=== PATIENT | male | born 1950 | race Caucasian/White ===

== ENCOUNTER → 2016-07-19 | Outpatient (CLI) | payer MEDICARE, OTHER ==
[~2016-07-19] MED LIST: ALPR-475 PO; ALPR0.5T6 PO; IBUP800T PO; IRON PO; IRON18TA PO; LACT10SO PO; LACT10SO28 PO; LACT1CAP40 PO; LACT1CAP43 PO; LACT20SO13 PO; MAGN400C PO; MELO-184 PO; MESA800T2 PO; MULT-516 PO; MULT-746 PO; NORCO PO; OMEP-110 PO; ONDA4TAB10 PO; OXYC-302 PO; OXYC5CAP4 PO; SERT50TA5 PO; TAMS-11 PO; TEST200V21 IM
== END | disposition home or self-care (01) ==
LOC: STAR 12:11
PROVIDERS: ATTEND Internal Medicine
DX: Z01.810 Encounter for preprocedural cardiovascular examination (principal); K83.0 Cholangitis
CPT/HCPCS: 93005

== ENCOUNTER 2016-07-26 05:21 | Day surgery (SDC) | payer MEDICARE, OTHER ==
[~2016-07-26] VITALS: Ht 180.3 cm; Wt 77.2 kg
[2016-07-26 06:10] VITALS: BP 121/80
[2016-07-26] MEDS ORDERED: LACTATED RINGERS 1,000 ML IV SCH (06:38)
[2016-07-26] MEDS ORDERED: LIDOCAINE 1%, 2ML SQ PRN (07:00)
[2016-07-26] MEDS ORDERED: MIDAZOLAM 1 MG/ML, 2ML ONE (07:21)
[2016-07-26] MEDS ORDERED: PROPOFOL 10 MG/ML, 20ML ONE (07:30)
[2016-07-26] MEDS ORDERED: ROCURONIUM 10 MG/ML ONE (07:30)
[2016-07-26] MEDS ORDERED: SUCCINYLCHOLINE 20 MG/ML, 10ML ONE (07:30)
[2016-07-26] MEDS ORDERED: CIPROFLOXACIN/PMX 400MG/200ML 200 ML ONE (07:42)
[2016-07-26] MEDS ORDERED: OMNIPAQUE 350 MG/ML, 50 ML BOTTLE ONE (08:51)
== END 2016-07-26 10:50 ==
LOC: OUT 05:21
PROVIDERS: ATTEND Internal Medicine
DX: K29.70 Gastritis, unspecified, without bleeding (principal); K83.0 Cholangitis; K51.90 Ulcerative colitis, unspecified, without complications; I85.00 Esophageal varices without bleeding; K31.89 Other diseases of stomach and duodenum; I10 Essential (primary) hypertension
CPT/HCPCS: 43261; 43275; 45330; 74328; 88304; 88305; C1894; C2625; J0330; J0744; J2250; J2704; J7120; Q9967

== ENCOUNTER → 2016-11-13 | Outpatient (CLI) | payer MEDICARE, OTHER ==
[~2016-11-13] MED LIST changes: +IBUP-1223 PO; -IBUP800T PO; -MELO-184 PO; +MELO15TA24 PO; +OXYC5CAP2 PO; -OXYC5CAP4 PO
== END | disposition home or self-care (01) ==
LOC: STAR 10:37
PROVIDERS: ATTEND Internal Medicine
DX: K83.0 Cholangitis (principal); R93.5 Abnormal findings on diagnostic imaging of other abdominal regions, including retroperitoneum; K51.90 Ulcerative colitis, unspecified, without complications
CPT/HCPCS: 93005

== ENCOUNTER 2016-11-22 08:59 | Day surgery (SDC) | payer MEDICARE, OTHER ==
[~2016-11-22] VITALS: Ht 177.8 cm; Wt 77.0 kg
[2016-11-22 09:34] VITALS: BP 116/79
[2016-11-22] MEDS: LACTATED RINGERS 1,000 ML IV SCH (09:51)
== END 2016-11-22 10:11 | disposition home or self-care (01) ==
LOC: OUT 08:59
PROVIDERS: ATTEND Internal Medicine
DX: K83.0 Cholangitis (principal); Z53.9 Procedure and treatment not carried out, unspecified reason
CPT/HCPCS: J7120

== ENCOUNTER 2016-11-28 09:55 | Day surgery (SDC) | payer MEDICARE, OTHER ==
[~2016-11-28] VITALS: Ht 177.8 cm; Wt 76.0 kg
[2016-11-28] MEDS ORDERED: LACTATED RINGERS 1,000 ML IV SCH ×2 (10:30→10:55)
[2016-11-28 10:44] VITALS: BP 129/70
[2016-11-28] MEDS ORDERED: LIDOCAINE 1%, 2ML ONE (10:47)
[2016-11-28] MEDS ORDERED: LIDOCAINE 1%, 2ML SQ PRN (11:00)
[2016-11-28] MEDS ORDERED: FENTANYL PF 100 MCG/2ML ONE (12:30)
[2016-11-28] MEDS ORDERED: MIDAZOLAM 1 MG/ML, 2ML ONE (12:30)
[2016-11-28] MEDS ORDERED: DEXAMETHASONE 4 MG/ML, 1ML ONE (13:27)
[2016-11-28] MEDS ORDERED: PROPOFOL 10 MG/ML, 20ML ONE (13:27)
[2016-11-28] MEDS ORDERED: SUCCINYLCHOLINE 20 MG/ML, 10ML ONE (13:27)
[2016-11-28] MEDS ORDERED: CEFAZOLIN 1,000 MG ONE (13:27)
[2016-11-28] MEDS ORDERED: NEOSTIGMINE 1 MG/ML, 10ML ONE (13:27)
[2016-11-28] MEDS ORDERED: ONDANSETRON 2MG/ML, 2ML ONE (13:27)
[2016-11-28] MEDS ORDERED: ROCURONIUM 10 MG/ML ONE (13:27)
[2016-11-28] MEDS ORDERED: GLYCOPYRROLATE 0.2MG/1ML, 5ML ONE (13:27)
[2016-11-28] MEDS ORDERED: PROMETHAZINE 25 MG/ML, 1ML IV PRN (13:30)
[2016-11-28] MEDS ORDERED: METOPROLOL 1 MG/ML, 5ML IV PRN (13:30)
[2016-11-28] MEDS ORDERED: hydrALAzine 20 MG/ML, 1ML IV PRN (13:30)
[2016-11-28] MEDS ORDERED: MIDAZOLAM 1 MG/ML, 2ML IV PRN (13:30)
[2016-11-28] MEDS ORDERED: HYDROcodone/APAP 7.5-325MG/15ML UDC PO PRN (13:30)
[2016-11-28] MEDS ORDERED: LABETALOL 5MG/ML, 20ML IV PRN (13:30)
[2016-11-28] MEDS ORDERED: OXYcodone 5 MG/5 ML ORAL.SOL UDC PO PRN (13:30)
[2016-11-28] MEDS ORDERED: ALBUTEROL SULFATE 2.5 MG/3 ML NPPB PRN (13:30)
[2016-11-28] MEDS ORDERED: ACETAMINOPHEN 325 MG TABLET PO PRN (13:30)
[2016-11-28] MEDS ORDERED: HYDROmorphone 1 MG/ML, 1ML IV PRN (13:30)
[2016-11-28] MEDS ORDERED: FENTANYL PF 100 MCG/2ML IV PRN (13:30)
[2016-11-28] MEDS ORDERED: MEPERIDINE/PF 25MG/0.5ML IVPush PRN (13:30)
[2016-11-28] MEDS ORDERED: DIAZEPAM 5 MG/ML, 2ML IVPush PRN (13:30)
[2016-11-28] MEDS ORDERED: EPHEDRINE 50 MG/ML, 1ML IVPush PRN (13:30)
[2016-11-28] MEDS ORDERED: ONDANSETRON 2MG/ML, 2ML IVPush PRN (13:30)
[2016-11-28] MEDS ORDERED: KETOROLAC 30 MG/1 ML IV PRN (13:30)
== END 2016-11-28 15:10 ==
LOC: OUT 09:55
PROVIDERS: ATTEND Internal Medicine
DX: K83.0 Cholangitis (principal)
CPT/HCPCS: 43261; 43276; 74328; 88305; C1769; C2625; J0330; J0690; J1100; J2250; J2405; J2704; J2710; J3010; J3490; J7120

== ENCOUNTER → 2017-03-26 | Outpatient (CLI) | payer MEDICARE, OTHER | END | disposition home or self-care (01) | LOC: STAR 12:57 | PROVIDERS: ATTEND Internal Medicine | DX: Z01.818 Encounter for other preprocedural examination (principal); K83.0 Cholangitis | CPT/HCPCS: 93005 ==

== ENCOUNTER 2017-04-10 08:03 | Day surgery (SDC) | payer MEDICARE, OTHER ==
[~2017-04-10] VITALS: Ht 177.8 cm; Wt 76.0 kg
[2017-04-10] MEDS ORDERED: LACTATED RINGERS 1,000 ML IV SCH (08:18)
[2017-04-10 08:32] VITALS: BP 108/73
[2017-04-10] MEDS ORDERED: MIDAZOLAM 1 MG/ML, 2ML ONE (10:40)
[2017-04-10] MEDS ORDERED: LIDOCAINE-MPF 2% ,5ML ONE (10:49)
[2017-04-10] MEDS ORDERED: PROPOFOL 10 MG/ML, 20ML ONE (10:49)
[2017-04-10] MEDS ORDERED: ROCURONIUM 10 MG/ML,10ML ONE (10:49)
[2017-04-10] MEDS ORDERED: FENTANYL PF 100 MCG/2ML ONE (11:02)
[2017-04-10] MEDS ORDERED: DEXAMETHASONE 4 MG/ML, 1ML ONE ×2 (11:03)
[2017-04-10] MEDS ORDERED: ONDANSETRON 2MG/ML, 2ML ONE (11:03)
[2017-04-10] MEDS ORDERED: morphine SULFATE 10 MG/ML, 1ML IV PRN (11:30)
[2017-04-10] MEDS ORDERED: HYDROcodone/APAP 7.5-325MG/15ML UDC PO PRN (11:30)
[2017-04-10] MEDS ORDERED: OXYcodone 5 MG/5 ML ORAL.SOL UDC PO PRN (11:30)
[2017-04-10] MEDS ORDERED: MEPERIDINE/PF 25MG/0.5ML IVPush PRN (11:30)
[2017-04-10] MEDS ORDERED: ONDANSETRON 2MG/ML, 2ML IVPush PRN (11:30)
[2017-04-10] MEDS ORDERED: FENTANYL PF 100 MCG/2ML IV PRN (11:30)
[2017-04-10] MEDS ORDERED: ACETAMINOPHEN 325 MG TABLET PO PRN (11:30)
[2017-04-10] MEDS ORDERED: NEOSTIGMINE 1 MG/ML, 10ML ONE (16:14)
[2017-04-10] MEDS ORDERED: GLYCOPYRROLATE 0.2MG/1ML, 5ML ONE (16:14)
== END 2017-04-10 13:05 ==
LOC: OUT 08:03
PROVIDERS: ATTEND Internal Medicine
DX: K83.0 Cholangitis (principal); Z88.5 Allergy status to narcotic agent; Z88.0 Allergy status to penicillin
CPT/HCPCS: 43261; 43276; 74328; 88112; C1894; C2625; J1100; J2405; J2704; J2710; J3010; J3490; J7120

== ENCOUNTER 2017-08-01 05:39 | Day surgery (SDC) | payer MEDICARE, OTHER ==
[~2017-08-01] VITALS: Ht 177.8 cm; Wt 73.8 kg
[2017-08-01] MEDS ORDERED: LACTATED RINGERS 1,000 ML IV SCH (06:47)
[2017-08-01 07:11] VITALS: BP 117/66
[2017-08-01] MEDS ORDERED: MIDAZOLAM 1 MG/ML, 2ML ONE (07:15)
[2017-08-01] MEDS ORDERED: ONDANSETRON 2MG/ML, 2ML ONE (07:34)
[2017-08-01] MEDS ORDERED: DEXAMETHASONE 4 MG/ML, 1ML ONE (07:34)
[2017-08-01] MEDS ORDERED: CEFAZOLIN 1,000 MG ONE (07:34)
[2017-08-01] MEDS ORDERED: PROPOFOL 10 MG/ML, 20ML ONE (07:34)
[2017-08-01] MEDS ORDERED: SUCCINYLCHOLINE 20 MG/ML, 10ML ONE (07:34)
[2017-08-01] MEDS ORDERED: OXYcodone 5 MG/5 ML ORAL.SOL UDC PO PRN (08:00)
[2017-08-01] MEDS ORDERED: ACETAMINOPHEN 325 MG TABLET PO PRN (08:00)
[2017-08-01] MEDS ORDERED: FENTANYL PF 100 MCG/2ML IV PRN (08:00)
[2017-08-01] MEDS ORDERED: OMNIPAQUE 350 MG/ML, 50 ML BOTTLE ONE (08:47)
== END 2017-08-01 10:45 | disposition home or self-care (01) ==
LOC: OUT 05:39
PROVIDERS: ATTEND Internal Medicine
DX: K83.0 Cholangitis (principal); K83.1 Obstruction of bile duct; K76.6 Portal hypertension; I85.00 Esophageal varices without bleeding; K31.9 Disease of stomach and duodenum, unspecified; Z88.5 Allergy status to narcotic agent; Z88.0 Allergy status to penicillin; Z85.038 Personal history of other malignant neoplasm of large intestine; Z79.899 Other long term (current) drug therapy
CPT/HCPCS: 43261; 43276; 74328; 88305; 93005; C1769; C1894; C2625; J0330; J0690; J1100; J2250; J2405; J2704; J7120; Q9967

== ENCOUNTER → 2017-11-20 | Outpatient (CLI) | payer MEDICARE, OTHER | END | disposition home or self-care (01) | LOC: STAR 13:20 | PROVIDERS: ATTEND Internal Medicine | DX: Z01.818 Encounter for other preprocedural examination (principal); K83.01 Primary sclerosing cholangitis | CPT/HCPCS: 93005 ==

== ENCOUNTER 2017-11-28 05:37 | Day surgery (SDC) | payer MEDICARE, OTHER ==
[~2017-11-28] VITALS: Ht 177.8 cm; Wt 73.0 kg
[2017-11-28] MEDS ORDERED: LACTATED RINGERS 1,000 ML IV SCH (06:08)
[2017-11-28 06:09] VITALS: BP 109/72
[2017-11-28] MEDS ORDERED: LIDOCAINE-MPF 1%, 2ML INFIL ONE (06:30)
[2017-11-28] MEDS ORDERED: MIDAZOLAM 1 MG/ML, 2ML ONE (07:03)
[2017-11-28] MEDS ORDERED: FENTANYL PF 100 MCG/2ML ONE (07:03)
[2017-11-28] MEDS ORDERED: PROPOFOL 10 MG/ML, 20ML ONE (07:25)
[2017-11-28] MEDS ORDERED: ROCURONIUM 10 MG/ML,10ML ONE (07:25)
[2017-11-28] MEDS ORDERED: SUCCINYLCHOLINE 20 MG/ML, 10ML ONE (07:25)
[2017-11-28] MEDS ORDERED: CEFAZOLIN 1,000 MG ONE (07:25)
[2017-11-28] MEDS ORDERED: ONDANSETRON 2MG/ML, 2ML ONE (07:25)
[2017-11-28] MEDS ORDERED: DEXAMETHASONE 4 MG/ML, 1ML ONE (07:25)
[2017-11-28] MEDS ORDERED: ALBUTEROL SULFATE 2.5 MG/3 ML NPPB PRN (08:00)
[2017-11-28] MEDS ORDERED: FENTANYL PF 100 MCG/2ML IV PRN (08:00)
[2017-11-28] MEDS ORDERED: ACETAMINOPHEN 325 MG TABLET PO PRN (08:00)
[2017-11-28] MEDS ORDERED: PROMETHAZINE 25 MG/ML, 1ML IV PRN (08:00)
[2017-11-28] MEDS ORDERED: OXYcodone 5 MG/5 ML ORAL.SOL UDC PO PRN (08:00)
== END 2017-11-28 11:15 | disposition home or self-care (01) ==
LOC: OUT 05:37
PROVIDERS: ATTEND Internal Medicine
DX: K83.09 Other cholangitis (principal); I85.00 Esophageal varices without bleeding; K76.6 Portal hypertension; K31.89 Other diseases of stomach and duodenum; Z88.5 Allergy status to narcotic agent; Z88.0 Allergy status to penicillin
CPT/HCPCS: 43261; 43276; 74328; 88305; C1894; C2625; J0330; J0690; J1100; J2250; J2405; J2704; J3010; J7120

== ENCOUNTER 2018-01-08 13:39 | Outpatient (CLI) | payer MEDICARE, OTHER | END 2018-01-15 09:53 | disposition home or self-care (01) | LOC: STAR 13:39 | PROVIDERS: ATTEND Surgery | DX: Z02.9 Encounter for administrative examinations, unspecified (principal) ==

== ENCOUNTER 2018-02-26 13:48 | Outpatient (CLI) | payer MEDICARE, OTHER ==
[~2018-02-26 13:48] MED LIST changes: +SERT50TA28 PO; -SERT50TA5 PO
== END 2018-02-26 23:59 | disposition home or self-care (01) ==
LOC: STAR 13:48
PROVIDERS: ATTEND Internal Medicine
DX: Z02.9 Encounter for administrative examinations, unspecified (principal)

== ENCOUNTER 2018-03-06 06:13 | Day surgery (SDC) | payer MEDICARE, OTHER ==
[~2018-03-06] VITALS: Ht 177.8 cm; Wt 73.0 kg
[2018-03-06 06:43] VITALS: BP 118/70
[2018-03-06] MEDS ORDERED: LACTATED RINGERS 1,000 ML IV SCH (06:47)
[2018-03-06] MEDS ORDERED: FENTANYL PF 250 MCG/5ML ONE (07:57)
[2018-03-06] MEDS ORDERED: MIDAZOLAM 1 MG/ML, 2ML ONE (07:57)
[2018-03-06] MEDS ORDERED: GLYCOPYRROLATE 0.2MG/1ML, 5ML ONE (08:00)
[2018-03-06] MEDS ORDERED: DEXAMETHASONE 4 MG/ML, 1ML ONE (08:00)
[2018-03-06] MEDS ORDERED: PROPOFOL 10 MG/ML, 20ML ONE (08:00)
[2018-03-06] MEDS ORDERED: CEFAZOLIN 1,000 MG ONE (08:00)
[2018-03-06] MEDS ORDERED: ROCURONIUM 10 MG/ML,10ML ONE ×2 (08:00)
[2018-03-06] MEDS ORDERED: NEOSTIGMINE 1 MG/ML, 10ML ONE (08:00)
[2018-03-06] MEDS ORDERED: PHENYLEPHRINE 10 MG/ML ONE (08:00)
[2018-03-06] MEDS ORDERED: FENTANYL PF 100 MCG/2ML IV PRN (08:30)
[2018-03-06] MEDS ORDERED: HALOPERIDOL 5 MG/ML IV PRN (08:30)
[2018-03-06] MEDS ORDERED: PROMETHAZINE 25 MG/ML, 1ML IV PRN (08:30)
[2018-03-06] MEDS ORDERED: MEPERIDINE/PF 25MG/0.5ML IVPush PRN (08:30)
[2018-03-06] MEDS ORDERED: LORazepam 2 MG/ML, 1ML IVPush PRN (08:30)
[2018-03-06] MEDS ORDERED: OXYcodone 5 MG/5 ML ORAL.SOL UDC PO PRN (08:30)
[2018-03-06] MEDS ORDERED: HYDROmorphone 2 MG/ML, 1ML IVPush PRN (08:30)
[2018-03-06] MEDS ORDERED: OMNIPAQUE 350 MG/ML, 50 ML BOTTLE ONE (11:58)
== END 2018-03-06 11:15 | disposition home or self-care (01) ==
LOC: OUT 06:13
PROVIDERS: ATTEND Internal Medicine
DX: K74.3 Primary biliary cirrhosis (principal); K83.01 Primary sclerosing cholangitis; K83.1 Obstruction of bile duct; I85.00 Esophageal varices without bleeding; Z88.5 Allergy status to narcotic agent; Z88.0 Allergy status to penicillin; Z88.8 Allergy status to other drugs, medicaments and biological substances
CPT/HCPCS: 43261; 43276; 74328; 88305; 93005; C1894; C2625; J0690; J1100; J2250; J2370; J2704; J2710; J3490; J7120; Q9967; J3010

== ENCOUNTER 2018-05-27 12:31 | Outpatient (CLI) | payer MEDICARE, OTHER ==
[2018-05-27] MEDS ORDERED: LACT10SO28 PO (12:53)
== END 2018-05-27 23:59 | disposition home or self-care (01) ==
LOC: STAR 12:31
PROVIDERS: ATTEND Internal Medicine
DX: Z02.9 Encounter for administrative examinations, unspecified (principal)

== ENCOUNTER 2018-06-02 10:35 | Inpatient (IN) | payer MEDICARE, OTHER ==
[~2018-06-02] VITALS: Ht 177.8 cm; Wt 68.2 kg
--- NOTE | 2018-06-02 10:46 | NUR ---
PT BIB [facility] FOR LEFT KNEE TENDERNESS AND ERYTHEMA X 1 WEEK. PT WAS SEEN AND PRESCRIBED ABX, DURING FOLLOW UP ON 05/29/2018, ABX CHANGED TO CLINDA. PT STATES SINCE THEN, KNEE HAS BEEN GETTING WORSE, WITH MORE ERYTHEMA AND TENDERNESS. CONNECTED TO MONITORS. VSS. EDMD ASSESSMENT COMPLETE. PA TO BEDSIDE FOR ASSESSMENT. AWAITING ORDERS. [facility].
[2018-06-02] MEDS ORDERED: VANCOMYCIN PER PHARMACY MC ONE (11:00)
[2018-06-02] MEDS ORDERED: CEFTRIAXONE PMX 1GM/50ML 50 ML IVPB ONE (11:00)
[2018-06-02] MEDS ORDERED: CEFTRIAXONE PMX 1GM/50ML 50 ML ONE (11:09)
--- NOTE | 2018-06-02 11:14 | NUR ---
ORDERS RECEIVED. IV ESTABLISHED. BLOOD CLULTURE X2 AND ALL LABS DRAWN. ABX STARTED AFTER BC DRAWN. VSS. AWAITING ROOM ASSIGNMENT. CALL [facility] WITHIN REACH.
[2018-06-02 11:23] LABS: ALBUMIN 2.8 g/dL (3.4-5.0); ANION GAP 5 mmol/L (5-15); CALCIUM 8.8 mg/dL (8.5-10.1); CHLORIDE 108 mmol/L (98-107); CREATININE 1.36 mg/dL (0.7-1.3)
[2018-06-02] MEDS: SODIUM CHLORIDE 0.9% 1,000 ML IV SCH (11:23)
[2018-06-02 11:26] LABS: MD NO
[2018-06-02 11:27] LABS: BASOPHILS # (AUTO) 0.04 x10^3/uL (0-0.1); BASOPHILS % (AUTO) 1 % (0-1); EOSINOPHILS # (AUTO) 0.13 x10^3/uL (0-0.4); EOSINOPHILS % (AUTO) 2 % (1-7); LYMPHOCYTES # (AUTO) 1.51 x10^3/uL (1-3.4); LYMPHOCYTES % (AUTO) 26 % (22-44); MEAN PLATELET VOLUME 6.8 fL (7.4-10.4); MONOCYTES # (AUTO) 0.26 x10^3/uL (0.2-0.8); MONOCYTES % (AUTO) 5 % (2-9); NEUTROPHILS # (AUTO) 3.84 x10^3/uL (1.8-6.8); NEUTROPHILS % (AUTO) 66 % (42-75); PLATELET COUNT 206 x10^3/uL (130-400); RED BLOOD COUNT 3.32 x10^6/uL (4.38-5.82); RED CELL DISTRIBUTION WIDTH 14.6 % (9.4-14.8)
[2018-06-02] MEDS ORDERED: VANCOMYCIN PER PHARMACY MC PRN (11:30)
[2018-06-02] MEDS ORDERED: VANCOMYCIN 1,500 MG in SODIUM CHLORIDE 0.9% 250 ML IV ONE (11:30)
[2018-06-02] MEDS ORDERED: ACETAMINOPHEN 325 MG TABLET PO PRN ×2 (11:30→16:00)
[2018-06-02] MEDS ORDERED: KETOROLAC 30 MG/1 ML IV PRN (11:30)
[2018-06-02] MEDS ORDERED: PHARMACOKINETIC CONSULTATION MC ONE (11:30)
[2018-06-02] MEDS ORDERED: ONDANSETRON ODT 4 MG PO PRN (11:30)
[2018-06-02] MEDS ORDERED: ONDANSETRON 2MG/ML, 2ML IVPush PRN (11:30)
--- NOTE | 2018-06-02 12:09 | NUR ---
PT RESTING IN ROOM. VSS. CALL [facility] WITHIN REACH. BLANKET PROVIDED FOR COMFORT PER PT REQUEST. REPORT GIVEN TO [facility]. AWAITING TRANSFER TO OR.
--- NOTE | 2018-06-02 12:55 | NUR ---
PT RESTING IN ROOM. VSS. UPDATES GIVEN TO PT'S SISTER DAVE TONGMOIRA WITH PT'S PERMISSION. ROOM ASSIGNED. WILL CALL REPORT NOW.
[2018-06-02] MEDS ORDERED: KETOROLAC 30 MG/1 ML ONE (14:12)
[2018-06-02 14:23] VITALS: BP 114/80
[2018-06-02 14:46] LABS: INTERNATIONAL NORMALIZED RATIO 1.07 (0.93-1.1); PROTHROMBIN TIME 11.2 Seconds (9.6-11.5)
[2018-06-02] MEDS ORDERED: PHARMACOKINETIC MONITORING MC PRN (15:00)
[2018-06-02] MEDS ORDERED: ENOXAPARIN 40 MG/0.4 ML SQ SCH (15:00)
[2018-06-02] MEDS ORDERED: FENTANYL PF 250 MCG/5ML ONE (15:29)
[2018-06-02] MEDS: VANCOMYCIN 1,500 MG in SODIUM CHLORIDE 0.9% 250 ML IV SCH (15:30)
[2018-06-02] MEDS ORDERED: DEXAMETHASONE 4 MG/ML, 1ML ONE (15:36)
[2018-06-02] MEDS ORDERED: ONDANSETRON 2MG/ML, 2ML ONE (15:36)
[2018-06-02] MEDS ORDERED: PROPOFOL 10 MG/ML, 20ML ONE (15:36)
[2018-06-02] MEDS ORDERED: VANCOMYCIN 1,000 MG ONE (15:51)
[2018-06-02] MEDS ORDERED: TOBRAMYCIN SULFATE 1.2 GM IMP ONE (15:51)
[2018-06-02] MEDS ORDERED: DIAZEPAM 5 MG/ML, 2ML IVPush PRN (16:00)
[2018-06-02] MEDS ORDERED: LABETALOL 5MG/ML, 20ML IV PRN (16:00)
[2018-06-02] MEDS ORDERED: ALBUTEROL SULFATE 2.5 MG/3 ML NPPB PRN (16:00)
[2018-06-02] MEDS ORDERED: hydrALAzine 20 MG/ML, 1ML IV PRN (16:00)
[2018-06-02] MEDS ORDERED: PROMETHAZINE 25 MG/ML, 1ML IV PRN (16:00)
[2018-06-02] MEDS ORDERED: MEPERIDINE/PF 25MG/0.5ML IVPush PRN (16:00)
[2018-06-02] MEDS ORDERED: HYDROmorphone 2 MG/ML, 1ML IVPush PRN (16:00)
[2018-06-02] MEDS ORDERED: FENTANYL PF 100 MCG/2ML ONE (16:32)
[2018-06-02] MEDS ORDERED: OXYcodone 5 MG/5 ML ORAL.SOL UDC ONE ×2 (16:32→16:46)
[2018-06-02] MEDS: FENTANYL PF 100 MCG/2ML IV PRN ×2 (16:37→16:44)
[2018-06-02] MEDS: OXYcodone 5 MG/5 ML ORAL.SOL UDC PO PRN ×2 (16:37→16:48)
[2018-06-02 17:22] VITALS: BP 116/68
[2018-06-02] MEDS: AMPICILLIN/SULBACTAM 3 GM in SODIUM CHLORIDE 0.9% 100 ML IV SCH ×2 (17:47→22:09)
[2018-06-02 19:14] VITALS: BP 96/62
[2018-06-02] MEDS: MESALAMINE 1.2 GM TABLET.DR PO SCH (21:00)
[2018-06-02] MEDS: TAMSULOSIN 0.4 MG CAP.ER.24H PO SCH (21:13)
[2018-06-02] MEDS: OXYcodone IR 5MG TABLET PO PRN (21:13)
[2018-06-03 00:08] VITALS: BP 104/49
[2018-06-03] MEDS: OXYcodone IR 5MG TABLET PO PRN ×4 (04:17→22:43)
[2018-06-03] MEDS: SODIUM CHLORIDE 0.9% 1,000 ML IV SCH ×2 (04:17→22:43)
[2018-06-03 04:22] VITALS: BP 96/44
[2018-06-03 05:15] LABS: BASOPHILS # (AUTO) 0.02 x10^3/uL (0-0.1); BASOPHILS % (AUTO) 0 % (0-1); EOSINOPHILS % (AUTO) 0 % (1-7); LYMPHOCYTES # (AUTO) 0.85 x10^3/uL (1-3.4); LYMPHOCYTES % (AUTO) 20 % (22-44); MD NO; MEAN CORPUSCULAR HEMOGLOBIN 31.2 pg (27.5-34.5); MEAN CORPUSCULAR VOLUME 94.6 fL (81-97); MEAN PLATELET VOLUME 7.3 fL (7.4-10.4); MONOCYTES # (AUTO) 0.11 x10^3/uL (0.2-0.8); MONOCYTES % (AUTO) 3 % (2-9); NEUTROPHILS # (AUTO) 3.28 x10^3/uL (1.8-6.8); NEUTROPHILS % (AUTO) 77 % (42-75); PLATELET COUNT 161 x10^3/uL (130-400); RED BLOOD COUNT 2.96 x10^6/uL (4.38-5.82); RED CELL DISTRIBUTION WIDTH 14.5 % (9.4-14.8)
[2018-06-03 05:24] LABS: CHLORIDE 110 mmol/L (98-107)
[2018-06-03 05:39] LABS: ALANINE AMINOTRANSFERASE 10 U/L (12-78); ALBUMIN 2.4 g/dL (3.4-5.0); ALKALINE PHOSPHATASE 119 U/L (45-117); ANION GAP 4 mmol/L (5-15); BILIRUBIN,TOTAL 0.3 mg/dL (0.2-1.0); CALCIUM 8.2 mg/dL (8.5-10.1); CREATININE 1.22 mg/dL (0.7-1.3); TOTAL PROTEIN 7.1 g/dL (6.4-8.2)
[2018-06-03] MEDS: AMPICILLIN/SULBACTAM 3 GM in SODIUM CHLORIDE 0.9% 100 ML IV SCH ×3 (06:06→22:39)
[2018-06-03] MEDS: ENOXAPARIN 40 MG/0.4 ML SQ SCH (06:06)
[2018-06-03 07:06] VITALS: BP 97/60
[2018-06-03] MEDS: MELOXICAM 15 MG TABLET PO SCH (09:05)
[2018-06-03] MEDS: MESALAMINE 1.2 GM TABLET.DR PO SCH ×2 (09:05→20:30)
[2018-06-03] MEDS: TAMSULOSIN 0.4 MG CAP.ER.24H PO SCH ×2 (09:05→20:30)
[2018-06-03] MEDS: LACTOBACILLUS CHEW TABLET PO SCH ×3 (11:15→20:30)
[2018-06-03 13:18] VITALS: BP 102/44
[2018-06-03] MEDS: VANCOMYCIN 1,500 MG in SODIUM CHLORIDE 0.9% 250 ML IV SCH (15:12)
[2018-06-03 20:06] VITALS: BP 97/57
[2018-06-04 03:57] VITALS: BP 100/49
[2018-06-04] MEDS: LACTOBACILLUS CHEW TABLET PO SCH ×4 (04:04→20:12)
[2018-06-04] MEDS: OXYcodone IR 5MG TABLET PO PRN ×5 (04:04→20:13)
[2018-06-04] MEDS: AMPICILLIN/SULBACTAM 3 GM in SODIUM CHLORIDE 0.9% 100 ML IV SCH ×3 (06:06→22:45)
[2018-06-04] MEDS: ENOXAPARIN 40 MG/0.4 ML SQ SCH (06:06)
[2018-06-04 07:42] VITALS: BP 97/44
[2018-06-04] MEDS: MESALAMINE 1.2 GM TABLET.DR PO SCH ×2 (08:22→20:12)
[2018-06-04] MEDS: MELOXICAM 15 MG TABLET PO SCH (08:22)
[2018-06-04] MEDS: TAMSULOSIN 0.4 MG CAP.ER.24H PO SCH ×2 (08:22→20:12)
[2018-06-04 13:22] VITALS: BP 94/44
[2018-06-04] MEDS: SODIUM CHLORIDE 0.9% 1,000 ML IV SCH (16:24)
[2018-06-04 20:19] VITALS: BP 108/63
[2018-06-05] MEDS: LACTOBACILLUS CHEW TABLET PO SCH ×3 (00:18→16:45)
[2018-06-05] MEDS: OXYcodone IR 5MG TABLET PO PRN ×3 (00:18→16:46)
[2018-06-05 03:38] VITALS: BP 96/63
[2018-06-05] MEDS: AMPICILLIN/SULBACTAM 3 GM in SODIUM CHLORIDE 0.9% 100 ML IV SCH (06:06)
[2018-06-05] MEDS ORDERED: ONDANSETRON 2MG/ML, 2ML IV PRN (08:30)
[2018-06-05] MEDS ORDERED: MIDAZOLAM 1 MG/ML, 2ML IV PRN (08:30)
[2018-06-05] MEDS ORDERED: hydrALAzine 20 MG/ML, 1ML IV PRN (08:30)
[2018-06-05] MEDS ORDERED: DIAZEPAM 5 MG/ML, 2ML IVPush PRN (08:30)
[2018-06-05] MEDS ORDERED: EPHEDRINE 50 MG/ML, 1ML IVPush PRN (08:30)
[2018-06-05] MEDS ORDERED: EPHEDRINE 50 MG/ML, 1ML IM PRN (08:30)
[2018-06-05] MEDS ORDERED: MORPHINE SULFATE 4 MG/ML, 1ML IVPush PRN (08:30)
[2018-06-05] MEDS ORDERED: ONDANSETRON ODT 8 MG PO PRN (08:30)
[2018-06-05] MEDS ORDERED: DIPHENHYDRAMINE 50 MG/ML, 1ML IVPush PRN (08:30)
[2018-06-05] MEDS ORDERED: METOPROLOL 1 MG/ML, 5ML IV PRN (08:30)
[2018-06-05] MEDS ORDERED: FENTANYL PF 100 MCG/2ML IV PRN (08:30)
[2018-06-05] MEDS ORDERED: OMNIPAQUE 350 MG/ML, 50 ML BOTTLE ONE (08:33)
[2018-06-05 09:15] VITALS: BP 102/67
[2018-06-05] MEDS ORDERED: ENOXAPARIN 40 MG/0.4 ML SQ SCH (09:30)
[2018-06-05] MEDS: TAMSULOSIN 0.4 MG CAP.ER.24H PO SCH (10:17)
[2018-06-05] MEDS: MELOXICAM 15 MG TABLET PO SCH (10:17)
[2018-06-05] MEDS: MESALAMINE 1.2 GM TABLET.DR PO SCH (10:17)
[2018-06-05] MEDS ORDERED: ERTAPENEM 1 GM in SODIUM CHLORIDE 0.9% 50 ML IV SCH (11:30)
[2018-06-05 12:32] VITALS: BP 99/67
[2018-06-05] MEDS ORDERED: PROPOFOL 10 MG/ML, 50ML ONE (14:40)
[2018-06-05] MEDS ORDERED: SUCCINYLCHOLINE 20 MG/ML, 10ML ONE (14:40)
[2018-06-05] MEDS ORDERED: ROCURONIUM 10MG/ML,5ML ONE (14:40)
[2018-06-05] MEDS ORDERED: ONDANSETRON 2MG/ML, 2ML ONE (14:40)
[2018-06-05] MEDS ORDERED: PROPOFOL 10 MG/ML, 20ML ONE (14:40)
[2018-06-05] MEDS ORDERED: ERTA1VIA IV (14:45)
[2018-06-05] MEDS ORDERED: ACID1TAB7 PO (14:45)
== END 2018-06-05 17:05 | disposition home or self-care (01) | DRG 500 ==
LOC: ED 11:02 → EDIP 11:10 → 4NOR 14:03 → DCLOUNGE 06-05 16:53
PROVIDERS: ADMIT Internal Medicine; ATTEND Internal Medicine
PROC: 0MDP0ZZ Extraction of Left Knee Bursa and Ligament, Open Approach (ICD-10-PCS; principal; 2018-06-02 15:30)
PROC: 02HV33Z Insertion of Infusion Device into Superior Vena Cava, Percutaneous Approach (ICD-10-PCS; 2018-06-04)
PROC: B5181ZA Fluoroscopy of Superior Vena Cava using Low Osmolar Contrast, Guidance (ICD-10-PCS; 2018-06-04)
PROC: B548ZZA Ultrasonography of Superior Vena Cava, Guidance (ICD-10-PCS; 2018-06-04)
PROC: 0FPB8DZ Removal of Intraluminal Device from Hepatobiliary Duct, Via Natural or Artificial Opening Endoscopic (ICD-10-PCS; 2018-06-05)
PROC: 0F798DZ Dilation of Common Bile Duct with Intraluminal Device, Via Natural or Artificial Opening Endoscopic (ICD-10-PCS; 2018-06-05)
DX: M70.42 Prepatellar bursitis, left knee (principal); E43 Unspecified severe protein-calorie malnutrition; I85.10 Secondary esophageal varices without bleeding; K51.90 Ulcerative colitis, unspecified, without complications; K76.6 Portal hypertension; K83.01 Primary sclerosing cholangitis; L02.416 Cutaneous abscess of left lower limb; L03.116 Cellulitis of left lower limb; D64.9 Anemia, unspecified; K31.89 Other diseases of stomach and duodenum; N40.0 Benign prostatic hyperplasia without lower urinary tract symptoms; K74.60 Unspecified cirrhosis of liver; Z68.21 Body mass index [BMI] 21.0-21.9, adult; Z80.0 Family history of malignant neoplasm of digestive organs; Z82.49 Family history of ischemic heart disease and other diseases of the circulatory system; Z85.038 Personal history of other malignant neoplasm of large intestine; Z86.711 Personal history of pulmonary embolism; Z90.49 Acquired absence of other specified parts of digestive tract; Z88.5 Allergy status to narcotic agent; Z88.0 Allergy status to penicillin
CPT/HCPCS: 36415; 36573; 74328; 80048; 80053; 82040; 83605; 85025; 85610; 85730; 86140; 87040; 87070; 87075; 87077; 87186; 87205; 93005; 96374; 99285; G0378; J0295; J0696; J1100; J1335; J1650; J1885; J2405; J2704; J3010; J3260; J3370; Q9967; C1751; C1769; C1894; C2625; J0330; J7030; J7050

== ENCOUNTER 2018-09-23 13:12 | Outpatient (CLI) | payer MEDICARE, OTHER | END 2018-09-23 23:59 | disposition home or self-care (01) | LOC: STAR 13:12 | PROVIDERS: ATTEND Internal Medicine | DX: Z01.818 Encounter for other preprocedural examination (principal); K83.01 Primary sclerosing cholangitis; R94.31 Abnormal electrocardiogram [ECG] [EKG] | CPT/HCPCS: 36415; 80053; 85025; 93005 ==

== ENCOUNTER 2018-12-20 12:50 | Outpatient (CLI) | payer MEDICARE, OTHER ==
[~2018-12-20 12:50] MED LIST changes: +ACID1TAB7 PO; -ALPR-475 PO; +ALPR0.5T7 PO; +ERTA1VIA IV; +SPIR50TA4 PO
[2018-12-20 13:41] LABS: BASOPHILS # (AUTO) 0.03 x10^3/uL (0-0.1); BASOPHILS % (AUTO) 1 % (0-1); EOSINOPHILS # (AUTO) 0.12 x10^3/uL (0-0.4); EOSINOPHILS % (AUTO) 4 % (1-7); LYMPHOCYTES # (AUTO) 1.14 x10^3/uL (1-3.4); LYMPHOCYTES % (AUTO) 35 % (22-44); MD NO; MEAN CORPUSCULAR HEMOGLOBIN 32.5 pg (27.5-34.5); MEAN CORPUSCULAR HGB CONC 33.1 g/dL (33.2-36.2); MEAN PLATELET VOLUME 8.4 fL (7.4-10.4); MONOCYTES # (AUTO) 0.27 x10^3/uL (0.2-0.8); MONOCYTES % (AUTO) 8 % (2-9); NEUTROPHILS # (AUTO) 1.75 x10^3/uL (1.8-6.8); NEUTROPHILS % (AUTO) 53 % (42-75); PLATELET COUNT 106 x10^3/uL (130-400); RED CELL DISTRIBUTION WIDTH 15.6 % (9.4-14.8)
[2018-12-20 13:49] LABS: INTERNATIONAL NORMALIZED RATIO 1.2 (0.93-1.1); PROTHROMBIN TIME 12.5 Seconds (9.6-11.5)
[2018-12-20 13:50] LABS: ALBUMIN 3.2 g/dL (3.4-5.0); ANION GAP 6 mmol/L (5-15); CALCIUM 8.2 mg/dL (8.5-10.1); CHLORIDE 109 mmol/L (98-107); CREATININE 1.38 mg/dL (0.7-1.3)
[2018-12-20 13:58] LABS: ALANINE AMINOTRANSFERASE 193 U/L (12-78); ALKALINE PHOSPHATASE 190 U/L (45-117); BILIRUBIN,TOTAL 1.3 mg/dL (0.2-1.0)
== END 2018-12-20 23:59 | disposition home or self-care (01) ==
LOC: STAR 12:50
PROVIDERS: ATTEND Internal Medicine
DX: Z01.818 Encounter for other preprocedural examination (principal); G93.49 Other encephalopathy; R94.31 Abnormal electrocardiogram [ECG] [EKG]
CPT/HCPCS: 36415; 80053; 85025; 85610; 85730; 93005

== ENCOUNTER 2018-12-25 05:39 | Day surgery (SDC) | payer MEDICARE, OTHER ==
[2018-12-20 13:30] VITALS: BP 133/63
[~2018-12-25] VITALS: Ht 177.8 cm; Wt 79.0 kg
[2018-12-25] MEDS ORDERED: LACTATED RINGERS 1,000 ML IV SCH (06:34)
[2018-12-25] MEDS ORDERED: PROPOFOL 50 ML ONE (07:25)
[2018-12-25] MEDS ORDERED: FENTANYL PF 100 MCG/2ML ONE (07:26)
[2018-12-25] MEDS ORDERED: ROCURONIUM 10 MG/ML,10ML ONE (07:30)
[2018-12-25] MEDS ORDERED: CEFAZOLIN 1,000 MG ONE (07:52)
[2018-12-25] MEDS ORDERED: ONDANSETRON 2MG/ML, 2ML ONE (07:52)
[2018-12-25] MEDS ORDERED: SUCCINYLCHOLINE 20 MG/ML, 10ML ONE (07:52)
[2018-12-25] MEDS ORDERED: ONDANSETRON 2MG/ML, 2ML IV PRN (08:00)
[2018-12-25] MEDS ORDERED: PROMETHAZINE 25 MG/ML, 1ML IV PRN (08:00)
[2018-12-25] MEDS ORDERED: HYDROmorphone 2 MG/ML, 1ML IVPush PRN (08:00)
[2018-12-25] MEDS ORDERED: EPHEDRINE 50 MG/ML, 1ML IVPush PRN (08:00)
[2018-12-25] MEDS ORDERED: MIDAZOLAM 1 MG/ML, 2ML IV PRN (08:00)
[2018-12-25] MEDS ORDERED: DIPHENHYDRAMINE 50 MG/ML, 1ML IM PRN (08:00)
[2018-12-25] MEDS ORDERED: FENTANYL PF 100 MCG/2ML IV PRN (08:00)
[2018-12-25] MEDS ORDERED: EPHEDRINE 50 MG/ML, 1ML IM PRN (08:00)
[2018-12-25] MEDS ORDERED: ONDANSETRON ODT 8 MG PO PRN (08:00)
== END 2018-12-25 11:45 | disposition home or self-care (01) ==
LOC: OUT 05:39
PROVIDERS: ATTEND Internal Medicine
DX: K83.09 Other cholangitis (principal); I85.00 Esophageal varices without bleeding; K76.6 Portal hypertension; K31.89 Other diseases of stomach and duodenum; K80.80 Other cholelithiasis without obstruction; Z88.0 Allergy status to penicillin; Z88.5 Allergy status to narcotic agent
CPT/HCPCS: 43261; 43276; 74328; 88305; 93005; C1894; C2625; J0330; J0690; J2405; J2704; J3010; J7120

== ENCOUNTER 2019-02-20 10:14 | Outpatient (CLI) | payer MEDICARE, OTHER | END 2019-02-20 23:59 | disposition home or self-care (01) | LOC: CFH 10:14 | PROVIDERS: ATTEND Family Medicine | DX: K76.0 Fatty (change of) liver, not elsewhere classified (principal); K83.01 Primary sclerosing cholangitis; R16.1 Splenomegaly, not elsewhere classified | CPT/HCPCS: 76700 ==

== ENCOUNTER → 2019-04-01 | Outpatient (CLI) | payer MEDICARE, OTHER | END | disposition home or self-care (01) | LOC: CFH 14:46 | PROVIDERS: ATTEND Internal Medicine Cardiovascular Disease | DX: I37.1 Nonrheumatic pulmonary valve insufficiency (principal); I49.9 Cardiac arrhythmia, unspecified; R06.02 Shortness of breath | CPT/HCPCS: 93306 ==

== ENCOUNTER 2019-04-15 09:54 | Outpatient (CLI) | payer MEDICARE, OTHER ==
[2019-04-15 11:12] LABS: ALANINE AMINOTRANSFERASE 80 U/L (12-78); ANION GAP 7 mmol/L (5-15); CALCIUM 8.4 mg/dL (8.5-10.1); CHLORIDE 109 mmol/L (98-107)
[2019-04-15 11:14] LABS: ALKALINE PHOSPHATASE 128 U/L (45-117); BILIRUBIN,TOTAL 1.3 mg/dL (0.2-1.0); CREATININE 1.37 mg/dL (0.7-1.3); TOTAL PROTEIN 7.3 g/dL (6.4-8.2)
== END 2019-04-15 23:59 | disposition home or self-care (01) ==
LOC: STAR 09:54
PROVIDERS: ATTEND Internal Medicine
DX: Z01.818 Encounter for other preprocedural examination (principal); K83.09 Other cholangitis; R00.1 Bradycardia, unspecified
CPT/HCPCS: 36415; 80053; 93005

== ENCOUNTER 2019-04-29 05:38 | Day surgery (SDC) | payer MEDICARE, OTHER ==
[~2019-04-29] VITALS: Ht 177.8 cm; Wt 77.0 kg
[2019-04-29 06:56] VITALS: BP 130/77
[2019-04-29] MEDS ORDERED: LACTATED RINGERS 1,000 ML IV SCH (07:00)
[2019-04-29] MEDS ORDERED: FENTANYL PF 100 MCG/2ML ONE ×2 (07:23→09:04)
[2019-04-29] MEDS ORDERED: PROPOFOL 50 ML ONE (07:24)
[2019-04-29] MEDS ORDERED: SUCCINYLCHOLINE 20 MG/ML, 10ML ONE (07:57)
[2019-04-29] MEDS ORDERED: ROCURONIUM 10MG/ML,5ML ONE (07:57)
[2019-04-29] MEDS ORDERED: PROPOFOL 10 MG/ML, 20ML ONE (08:09)
[2019-04-29] MEDS ORDERED: ONDANSETRON 2MG/ML, 2ML ONE (08:10)
[2019-04-29] MEDS ORDERED: CIPROFLOXACIN/PMX 400MG/200ML 200 ML ONE (08:16)
[2019-04-29] MEDS ORDERED: PROMETHAZINE 25 MG/ML, 1ML IV PRN (08:30)
[2019-04-29] MEDS ORDERED: ONDANSETRON ODT 8 MG PO PRN (08:30)
[2019-04-29] MEDS ORDERED: LABETALOL 5MG/ML, 20ML IV PRN (08:30)
[2019-04-29] MEDS ORDERED: EPHEDRINE 50 MG/ML, 1ML IM PRN (08:30)
[2019-04-29] MEDS ORDERED: DIAZEPAM 5 MG/ML, 2ML IVPush PRN (08:30)
[2019-04-29] MEDS ORDERED: FENTANYL PF 100 MCG/2ML IV PRN (08:30)
[2019-04-29] MEDS ORDERED: DIPHENHYDRAMINE 50 MG/ML, 1ML IVPush PRN (08:30)
[2019-04-29] MEDS ORDERED: EPHEDRINE 50 MG/ML, 1ML IVPush PRN (08:30)
[2019-04-29] MEDS ORDERED: ONDANSETRON 2MG/ML, 2ML IV PRN (08:30)
[2019-04-29] MEDS ORDERED: OMNIPAQUE 350 MG/ML, 50 ML BOTTLE ONE (14:46)
== END 2019-04-29 10:35 | disposition home or self-care (01) ==
LOC: OUT 05:38
PROVIDERS: ATTEND Internal Medicine
DX: K83.01 Primary sclerosing cholangitis (principal); K83.1 Obstruction of bile duct; Z88.5 Allergy status to narcotic agent; Z91.041 Radiographic dye allergy status
CPT/HCPCS: 43276; 74328; 88112; 88305; C1769; C1894; C2625; J0330; J0744; J2405; J2704; J3010; J7120; Q9967

== ENCOUNTER → 2019-07-25 | Outpatient (CLI) | payer MEDICARE, OTHER ==
[2019-07-25 10:52] LABS: ALANINE AMINOTRANSFERASE 96 U/L (12-78); ALBUMIN 2.9 g/dL (3.4-5.0); ANION GAP 3 mmol/L (5-15); CALCIUM 8.1 mg/dL (8.5-10.1); CHLORIDE 111 mmol/L (98-107)
[2019-07-25 10:55] LABS: ALKALINE PHOSPHATASE 169 U/L (45-117); CREATININE 1.41 mg/dL (0.7-1.3); TOTAL PROTEIN 7.8 g/dL (6.4-8.2)
== END | disposition home or self-care (01) ==
LOC: STAR 09:46
PROVIDERS: ATTEND Internal Medicine
DX: Z01.818 Encounter for other preprocedural examination (principal); Z11.59 Encounter for screening for other viral diseases; K83.01 Primary sclerosing cholangitis
CPT/HCPCS: 36415; 80053; U0001

== ENCOUNTER 2019-07-29 05:34 | Day surgery (SDC) | payer MEDICARE, OTHER ==
[~2019-07-29] VITALS: Ht 175.3 cm; Wt 79.0 kg
[2019-07-29 06:04] VITALS: BP 120/64
[2019-07-29] MEDS ORDERED: LACTATED RINGERS 1,000 ML IV SCH (06:12)
[2019-07-29] MEDS ORDERED: CHLORHEXIDINE 15 ML UDC MM STA (06:13)
[2019-07-29] MEDS ORDERED: SUCCINYLCHOLINE 20 MG/ML, 10ML ONE (07:05)
[2019-07-29] MEDS ORDERED: LIDOCAINE-MPF 2% ,5ML ONE (07:05)
[2019-07-29] MEDS ORDERED: MIDAZOLAM 1 MG/ML, 2ML ONE (07:05)
[2019-07-29] MEDS ORDERED: PROPOFOL 10 MG/ML, 20ML ONE ×2 (07:05)
[2019-07-29] MEDS ORDERED: FENTANYL PF 100 MCG/2ML ONE (07:05)
[2019-07-29] MEDS ORDERED: FENTANYL PF 100 MCG/2ML IV PRN (07:30)
[2019-07-29] MEDS ORDERED: DIPHENHYDRAMINE 50 MG/ML, 1ML IVPush PRN (07:30)
[2019-07-29] MEDS ORDERED: ONDANSETRON 2MG/ML, 2ML IVPush PRN (07:30)
[2019-07-29] MEDS ORDERED: PROMETHAZINE 25 MG/ML, 1ML IVPush PRN (07:30)
[2019-07-29] MEDS ORDERED: OMNIPAQUE 350 MG/ML, 50 ML BOTTLE ONE (08:00)
[2019-07-29] MEDS ORDERED: ONDANSETRON 2MG/ML, 2ML ONE (08:04)
[2019-07-29] MEDS ORDERED: DEXAMETHASONE 4 MG/ML, 1ML ONE ×2 (08:14→08:15)
== END 2019-07-29 10:00 | disposition home or self-care (01) ==
LOC: OUT 05:34
PROVIDERS: ATTEND Internal Medicine
DX: Z46.59 Encounter for fitting and adjustment of other gastrointestinal appliance and device (principal); K83.01 Primary sclerosing cholangitis; K83.1 Obstruction of bile duct; K75.4 Autoimmune hepatitis; Z79.899 Other long term (current) drug therapy; Z85.038 Personal history of other malignant neoplasm of large intestine; Z86.711 Personal history of pulmonary embolism; Z88.0 Allergy status to penicillin; Z88.5 Allergy status to narcotic agent
CPT/HCPCS: 43276; 74328; C1769; C1894; C2625; J0330; J1100; J2250; J2405; J2704; J3010; J7120; Q9967

== ENCOUNTER → 2019-11-07 | Outpatient (CLI) | payer MEDICARE, OTHER ==
[2019-11-07 13:01] LABS: ALBUMIN 2.4 g/dL (3.4-5.0); ANION GAP 5 mmol/L (5-15); CALCIUM 8.2 mg/dL (8.5-10.1); CHLORIDE 110 mmol/L (98-107)
[2019-11-07 13:05] LABS: ALANINE AMINOTRANSFERASE 95 U/L (12-78); ALKALINE PHOSPHATASE 134 U/L (45-117); BILIRUBIN,TOTAL 1.3 mg/dL (0.2-1.0); CREATININE 1.41 mg/dL (0.7-1.3); TOTAL PROTEIN 7.7 g/dL (6.4-8.2)
== END | disposition home or self-care (01) ==
LOC: STAR 10:40
PROVIDERS: ATTEND Internal Medicine
DX: Z01.812 Encounter for preprocedural laboratory examination (principal); Z20.828 Contact with and (suspected) exposure to other viral communicable diseases; K83.09 Other cholangitis
CPT/HCPCS: 36415; 80053; 87635; 93005

== ENCOUNTER 2019-11-11 05:14 | Day surgery (SDC) | payer MEDICARE, OTHER ==
[~2019-11-11] VITALS: Ht 177.8 cm; Wt 74.0 kg
[2019-11-11] MEDS ORDERED: LACTATED RINGERS 1,000 ML IV SCH (06:31)
[2019-11-11] MEDS ORDERED: CHLORHEXIDINE 15 ML UDC MM STA (06:32)
[2019-11-11 06:33] VITALS: BP 125/68
[2019-11-11] MEDS ORDERED: CEFAZOLIN 1,000 MG ONE (07:01)
[2019-11-11] MEDS ORDERED: PROPOFOL 10 MG/ML, 20ML ONE (07:01)
[2019-11-11] MEDS ORDERED: NEOSTIGMINE 1 MG/ML, 10ML ONE (07:01)
[2019-11-11] MEDS ORDERED: DEXAMETHASONE 4 MG/ML, 1ML ONE (07:01)
[2019-11-11] MEDS ORDERED: FENTANYL PF 100 MCG/2ML ONE ×2 (07:01→08:43)
[2019-11-11] MEDS ORDERED: ONDANSETRON 2MG/ML, 2ML ONE (07:01)
[2019-11-11] MEDS ORDERED: GLYCOPYRROLATE 0.2MG/1ML, 5ML ONE (07:01)
[2019-11-11] MEDS ORDERED: SUCCINYLCHOLINE 20 MG/ML, 10ML ONE (07:01)
[2019-11-11] MEDS ORDERED: MIDAZOLAM 1 MG/ML, 2ML ONE ×2 (07:01→08:43)
[2019-11-11] MEDS ORDERED: PROMETHAZINE 25 MG/ML, 1ML IVPush PRN (07:30)
[2019-11-11] MEDS ORDERED: HYDROmorphone 1 MG/ML, 1ML INJ IVPush PRN (07:30)
[2019-11-11] MEDS ORDERED: FENTANYL PF 100 MCG/2ML IV PRN (07:30)
[2019-11-11] MEDS ORDERED: OMNIPAQUE 350 MG/ML, 50 ML BOTTLE ONE (07:30)
[2019-11-11] MEDS ORDERED: ROCURONIUM 10 MG/ML,10ML ONE (08:00)
== END 2019-11-11 09:55 | disposition home or self-care (01) ==
LOC: OUT 05:14
PROVIDERS: ATTEND Internal Medicine
DX: K83.01 Primary sclerosing cholangitis (principal); I85.00 Esophageal varices without bleeding; K31.89 Other diseases of stomach and duodenum; K75.4 Autoimmune hepatitis; Z88.5 Allergy status to narcotic agent; Z88.0 Allergy status to penicillin; Z85.038 Personal history of other malignant neoplasm of large intestine; Z86.718 Personal history of other venous thrombosis and embolism; Z79.899 Other long term (current) drug therapy; Z98.890 Other specified postprocedural states; Z87.891 Personal history of nicotine dependence
CPT/HCPCS: 43235; 43276; 74328; C1769; C1894; C2625; J0330; J0690; J1100; J2250; J2405; J2704; J2710; J3010; J7120; Q9967

== ENCOUNTER 2020-01-06 12:16 | Outpatient (CLI) | payer MEDICARE, OTHER | END 2020-01-06 23:59 | disposition home or self-care (01) | LOC: STAR 12:16 | PROVIDERS: ATTEND Internal Medicine | DX: Z02.9 Encounter for administrative examinations, unspecified (principal) ==

== ENCOUNTER 2020-01-13 05:16 | Day surgery (SDC) | payer MEDICARE, OTHER ==
[~2020-01-13] VITALS: Ht 177.8 cm; Wt 76.7 kg
[2020-01-13 06:06] VITALS: BP 106/51
[2020-01-13] MEDS ORDERED: CHLORHEXIDINE 15 ML UDC MM ONE (06:30)
[2020-01-13] MEDS ORDERED: LACTATED RINGERS 1,000 ML IV SCH (06:30)
[2020-01-13] MEDS ORDERED: MIDAZOLAM 1 MG/ML, 2ML ONE (07:31)
[2020-01-13] MEDS ORDERED: FENTANYL PF 100 MCG/2ML ONE (07:31)
[2020-01-13] MEDS ORDERED: PROPOFOL 10 MG/ML, 20ML ONE (07:44)
[2020-01-13] MEDS ORDERED: DEXAMETHASONE 4 MG/ML, 1ML ONE (07:44)
[2020-01-13] MEDS ORDERED: ONDANSETRON 2MG/ML, 2ML ONE (07:44)
[2020-01-13] MEDS ORDERED: SUCCINYLCHOLINE 20 MG/ML, 10ML ONE (07:44)
[2020-01-13] MEDS ORDERED: HYDROmorphone 1 MG/ML, 1ML INJ IVPush PRN (08:30)
[2020-01-13] MEDS ORDERED: OXYcodone 5 MG/5 ML ORAL.SOL UDC PO PRN (08:30)
[2020-01-13] MEDS ORDERED: DIPHENHYDRAMINE 50 MG/ML, 1ML IVPush PRN (08:30)
[2020-01-13] MEDS ORDERED: FENTANYL PF 100 MCG/2ML IV PRN (08:30)
[2020-01-13] MEDS ORDERED: ONDANSETRON 2MG/ML, 2ML IVPush PRN (08:30)
[2020-01-13] MEDS ORDERED: LABETALOL 5MG/ML, 20ML IV PRN (08:30)
[2020-01-13] MEDS ORDERED: EPHEDRINE 50 MG/ML, 1ML IVPush PRN (08:30)
[2020-01-13] MEDS ORDERED: MIDAZOLAM 1 MG/ML, 2ML IV PRN (08:30)
[2020-01-13] MEDS ORDERED: ALBUTEROL SULFATE 2.5 MG/3 ML NPPB PRN (08:30)
[2020-01-13] MEDS ORDERED: MEPERIDINE/PF 25MG/0.5ML IVPush PRN (08:30)
[2020-01-13] MEDS ORDERED: hydrALAzine 20 MG/ML, 1ML IV PRN (08:30)
[2020-01-13] MEDS ORDERED: PROMETHAZINE 25 MG/ML, 1ML IVPush PRN (08:30)
[2020-01-13] MEDS ORDERED: DIAZEPAM 5 MG/ML, 2ML IVPush PRN (08:30)
[2020-01-13] MEDS ORDERED: OMNIPAQUE 350 MG/ML, 50 ML BOTTLE ONE (08:59)
== END 2020-01-13 10:30 | disposition home or self-care (01) ==
LOC: OUT 05:16
PROVIDERS: ATTEND Internal Medicine
DX: Z46.59 Encounter for fitting and adjustment of other gastrointestinal appliance and device (principal); K83.01 Primary sclerosing cholangitis; K83.1 Obstruction of bile duct; I85.00 Esophageal varices without bleeding; K83.8 Other specified diseases of biliary tract; Z20.828 Contact with and (suspected) exposure to other viral communicable diseases; Z79.899 Other long term (current) drug therapy; Z88.0 Allergy status to penicillin; Z88.5 Allergy status to narcotic agent
CPT/HCPCS: 43235; 43276; 74328; 87635; C1894; C2625; J0330; J1100; J2250; J2405; J2704; J3010; J7120; Q9967

== ENCOUNTER → 2020-05-14 | Outpatient (CLI) | payer MEDICARE, OTHER ==
[~2020-05-14] MED LIST changes: -ALPR0.5T6 PO; +ALPR0.5T93 PO; -LACT10SO PO; +LACT10SO2 PO; -OXYC-302 PO; +OXYC1TAB14 PO
[2020-05-14 12:07] LABS: BASOPHILS % (AUTO) 1 % (0-1); EOSINOPHILS % (AUTO) 3 % (1-7); LYMPHOCYTES % (AUTO) 22 % (22-44); MEAN CORPUSCULAR HEMOGLOBIN 37.5 pg (27.5-34.5); MEAN CORPUSCULAR HGB CONC 34.3 g/dL (33.2-36.2); MEAN PLATELET VOLUME 7.3 fL (7.4-10.4); MONOCYTES % (AUTO) 7 % (2-9); NEUTROPHILS % (AUTO) 67 % (42-75); PLATELET COUNT 117 x10^3/uL (130-400); RED BLOOD COUNT 2.57 x10^6/uL (4.38-5.82); RED CELL DISTRIBUTION WIDTH 15.8 % (9.4-14.8)
[2020-05-14 12:20] LABS: ALANINE AMINOTRANSFERASE 17 U/L (12-78); ANION GAP 4 mmol/L (5-15); CALCIUM 7.4 mg/dL (8.5-10.1); CHLORIDE 108 mmol/L (98-107); CREATININE 1.29 mg/dL (0.7-1.3)
[2020-05-14 12:22] LABS: ALKALINE PHOSPHATASE 127 U/L (45-117); BILIRUBIN,TOTAL 0.9 mg/dL (0.2-1.0); TOTAL PROTEIN 7.1 g/dL (6.4-8.2)
[2020-05-14 12:39] LABS: MD MORPH REVIEW ONLY
[2020-05-14 12:40] LABS: ANISOCYTOSIS 1+
[2020-05-14 12:41] LABS: <PLATELET ESTIMATE> DECREASED; <PLT MORPHOLOGY> NORMAL PLT MORPH
== END | disposition home or self-care (01) ==
LOC: STAR 10:56
PROVIDERS: ATTEND Internal Medicine Geriatric Medicine
DX: Z01.818 Encounter for other preprocedural examination (principal); K83.01 Primary sclerosing cholangitis; I49.3 Ventricular premature depolarization; Z20.822 Contact with and (suspected) exposure to COVID-19
CPT/HCPCS: 36415; 80053; 85025; 93005; U0003

== ENCOUNTER 2020-05-18 06:27 | Day surgery (SDC) | payer MEDICARE, OTHER ==
[~2020-05-18] VITALS: Ht 177.8 cm; Wt 74.0 kg
[~2020-05-18 06:27] MED LIST changes: -LACT1CAP40 PO; +LACT1CAP45 PO; +OXYC1TAB12 PO; -OXYC1TAB14 PO
[2020-05-18] MEDS ORDERED: CHLORHEXIDINE 15 ML UDC PO ONE (07:00)
[2020-05-18 07:11] VITALS: BP 108/64
[2020-05-18] MEDS ORDERED: LACTATED RINGERS 1,000 ML IV SCH (08:00)
[2020-05-18] MEDS ORDERED: FENTANYL PF 100 MCG/2ML ONE (08:13)
[2020-05-18] MEDS ORDERED: MIDAZOLAM 1 MG/ML, 2ML ONE (08:13)
[2020-05-18] MEDS ORDERED: PROPOFOL 10 MG/ML, 20ML ONE (08:18)
[2020-05-18] MEDS ORDERED: OMNIPAQUE 350 MG/ML, 50 ML BOTTLE ONE (08:19)
[2020-05-18] MEDS ORDERED: DEXAMETHASONE 4 MG/ML, 5ML ONE (08:27)
[2020-05-18] MEDS ORDERED: ONDANSETRON 2MG/ML, 2ML ONE (08:27)
[2020-05-18] MEDS ORDERED: ROCURONIUM 10MG/ML,5ML ONE (08:27)
[2020-05-18] MEDS ORDERED: SUCCINYLCHOLINE 20 MG/ML, 10ML ONE (08:27)
[2020-05-18] MEDS ORDERED: HYDROmorphone 1 MG/ML, 1ML INJ IVPush PRN (09:00)
[2020-05-18] MEDS ORDERED: MIDAZOLAM 1 MG/ML, 2ML IV PRN (09:00)
[2020-05-18] MEDS ORDERED: hydrALAzine 20 MG/ML, 1ML IV PRN (09:00)
[2020-05-18] MEDS ORDERED: DIAZEPAM 5 MG/ML, 2ML IVPush PRN (09:00)
[2020-05-18] MEDS ORDERED: EPHEDRINE 50 MG/ML, 1ML IVPush PRN (09:00)
[2020-05-18] MEDS ORDERED: PROMETHAZINE 12.5 MG SUPP PR PRN (09:00)
[2020-05-18] MEDS ORDERED: ALBUTEROL SULFATE 2.5 MG/3 ML NPPB PRN (09:00)
[2020-05-18] MEDS ORDERED: MEPERIDINE/PF 25MG/0.5ML IVPush PRN (09:00)
[2020-05-18] MEDS ORDERED: DIPHENHYDRAMINE 50 MG/ML, 1ML IVPush PRN ×2 (09:00)
[2020-05-18] MEDS ORDERED: LABETALOL 5MG/ML, 20ML IV PRN (09:00)
[2020-05-18] MEDS ORDERED: FENTANYL PF 100 MCG/2ML IV PRN (09:00)
[2020-05-18] MEDS ORDERED: OXYcodone 5 MG/5 ML ORAL.SOL UDC PO PRN (09:00)
[2020-05-18] MEDS ORDERED: ONDANSETRON 2MG/ML, 2ML IVPush PRN (09:00)
[2020-05-18] MEDS ORDERED: PROMETHAZINE 25 MG/ML, 1ML IVPush PRN (09:00)
== END 2020-05-18 11:45 | disposition home or self-care (01) ==
LOC: OUT 06:27
PROVIDERS: ATTEND Internal Medicine Geriatric Medicine
DX: T85.898A Other specified complication of other internal prosthetic devices, implants and grafts, initial encounter (principal); K83.01 Primary sclerosing cholangitis; K75.4 Autoimmune hepatitis; F41.9 Anxiety disorder, unspecified; Z79.899 Other long term (current) drug therapy; Z85.038 Personal history of other malignant neoplasm of large intestine; Z88.5 Allergy status to narcotic agent; Z90.49 Acquired absence of other specified parts of digestive tract; Y83.8 Other surgical procedures as the cause of abnormal reaction of the patient, or of later complication, without mention of misadventure at the time of the procedure
CPT/HCPCS: 43264; 43276; 74328; C1769; C1894; C2625; J0330; J1100; J2250; J2405; J2704; J3010; J7120; Q9967

== ENCOUNTER → 2020-08-18 | Outpatient (CLI) | payer MEDICARE, OTHER ==
[~2020-08-18] MED LIST changes: -OXYC1TAB12 PO; +OXYC1TAB14 PO
[2020-08-18 14:43] LABS: BASOPHILS % (AUTO) 2 % (0-1); EOSINOPHILS % (AUTO) 4 % (1-7); LYMPHOCYTES % (AUTO) 22 % (22-44); MEAN CORPUSCULAR HEMOGLOBIN 35.8 pg (27.5-34.5); MEAN CORPUSCULAR HGB CONC 33.9 g/dL (33.2-36.2); MEAN PLATELET VOLUME 7.3 fL (7.4-10.4); MONOCYTES % (AUTO) 9 % (2-9); NEUTROPHILS % (AUTO) 64 % (42-75); PLATELET COUNT 116 x10^3/uL (130-400); RED BLOOD COUNT 2.93 x10^6/uL (4.38-5.82)
[2020-08-18 14:44] LABS: ALANINE AMINOTRANSFERASE 22 U/L (12-78); ALBUMIN 2.5 g/dL (3.4-5.0); ANION GAP 4 mmol/L (5-15); CALCIUM 8.2 mg/dL (8.5-10.1); CHLORIDE 111 mmol/L (98-107); CREATININE 0.97 mg/dL (0.7-1.3)
[2020-08-18 14:46] LABS: INTERNATIONAL NORMALIZED RATIO 1.29 (0.93-1.1); PROTHROMBIN TIME 13.6 Seconds (9.6-11.5)
[2020-08-18 14:47] LABS: ALKALINE PHOSPHATASE 164 U/L (45-117); BILIRUBIN,TOTAL 1.1 mg/dL (0.2-1.0); TOTAL PROTEIN 7.9 g/dL (6.4-8.2)
== END | disposition home or self-care (01) ==
LOC: STAR 13:28
PROVIDERS: ATTEND Internal Medicine Geriatric Medicine
DX: Z01.818 Encounter for other preprocedural examination (principal); I49.3 Ventricular premature depolarization; Z20.822 Contact with and (suspected) exposure to COVID-19
CPT/HCPCS: 36415; 80053; 85025; 85610; 85730; 93005; U0003; U0005

== ENCOUNTER 2020-08-24 05:23 | Day surgery (SDC) | payer MEDICARE, OTHER ==
[~2020-08-24] VITALS: Ht 177.8 cm; Wt 68.0 kg
[2020-08-24 06:17] VITALS: BP 121/72
[2020-08-24] MEDS ORDERED: LACTATED RINGERS 1,000 ML IV SCH (06:30)
[2020-08-24] MEDS ORDERED: CHLORHEXIDINE 15 ML UDC PO ONE (06:30)
[2020-08-24] MEDS ORDERED: MAGNESIUM SULFATE 1 GM/2 ML ONE (06:57)
[2020-08-24] MEDS ORDERED: LIDOCAINE/PF 1%, 30ML ONE (06:58)
[2020-08-24] MEDS ORDERED: FENTANYL PF 100 MCG/2ML ONE (07:00)
[2020-08-24] MEDS ORDERED: MIDAZOLAM 1 MG/ML, 2ML ONE (07:00)
[2020-08-24] MEDS ORDERED: DEXAMETHASONE 4 MG/ML, 5ML ONE (07:00)
[2020-08-24] MEDS ORDERED: PROPOFOL 10 MG/ML, 20ML ONE (07:00)
[2020-08-24] MEDS ORDERED: ROCURONIUM 10MG/ML,5ML ONE (07:00)
[2020-08-24] MEDS ORDERED: GLYCOPYRROLATE 0.2MG/1ML, 5ML ONE (07:00)
[2020-08-24] MEDS ORDERED: OMNIPAQUE 350 MG/ML, 50 ML BOTTLE ONE (07:22)
[2020-08-24] MEDS ORDERED: METOCLOPRAMIDE 5 MG/ML, 2ML IVPush PRN (07:30)
[2020-08-24] MEDS ORDERED: hydrALAzine 20 MG/ML, 1ML IV PRN (07:30)
[2020-08-24] MEDS ORDERED: MIDAZOLAM 1 MG/ML, 2ML IV PRN (07:30)
[2020-08-24] MEDS ORDERED: LORazepam 2 MG/ML, 1ML IVPush PRN (07:30)
[2020-08-24] MEDS ORDERED: METHOCARBAMOL 1,000 MG in DEXTROSE 5% 100 ML IV PRN (07:30)
[2020-08-24] MEDS ORDERED: FENTANYL PF 100 MCG/2ML IV PRN (07:30)
[2020-08-24] MEDS ORDERED: HYDROmorphone 1 MG/ML, 1ML INJ IVPush PRN (07:30)
[2020-08-24] MEDS ORDERED: EPHEDRINE 50 MG/ML, 1ML IVPush PRN (07:30)
[2020-08-24] MEDS ORDERED: LABETALOL 5MG/ML, 20ML IV PRN (07:30)
[2020-08-24] MEDS ORDERED: ONDANSETRON 2MG/ML, 2ML IVPush PRN (07:30)
[2020-08-24] MEDS ORDERED: MEPERIDINE/PF 25MG/0.5ML IVPush PRN (07:30)
[2020-08-24] MEDS ORDERED: HALOPERIDOL 5 MG/ML IV PRN (07:30)
[2020-08-24] MEDS ORDERED: ALBUTEROL/IPRATROPIUM 2.5MG/0.5MG, 3 ML NPPB PRN (07:30)
[2020-08-24] MEDS ORDERED: DIPHENHYDRAMINE 50 MG/ML, 1ML IVPush PRN (07:30)
[2020-08-24] MEDS ORDERED: EPHEDRINE 50 MG/ML, 1ML IM PRN (07:30)
== END 2020-08-24 10:35 | disposition home or self-care (01) ==
LOC: OUT 05:23
PROVIDERS: ATTEND Internal Medicine Geriatric Medicine
DX: Z46.59 Encounter for fitting and adjustment of other gastrointestinal appliance and device (principal); K83.01 Primary sclerosing cholangitis; K51.00 Ulcerative (chronic) pancolitis without complications; K72.90 Hepatic failure, unspecified without coma; K75.4 Autoimmune hepatitis; Z79.899 Other long term (current) drug therapy; Z86.711 Personal history of pulmonary embolism; Z87.891 Personal history of nicotine dependence; Z88.0 Allergy status to penicillin; Z88.5 Allergy status to narcotic agent; Z90.49 Acquired absence of other specified parts of digestive tract; Z98.890 Other specified postprocedural states
CPT/HCPCS: 43276; 74328; C1769; C1894; C2625; J1100; J2250; J2704; J3010; J3475; J7120; Q9967

== ENCOUNTER → 2020-09-08 | Outpatient (CLI) | payer MEDICARE, OTHER | END | disposition home or self-care (01) | LOC: CFH 14:41 | PROVIDERS: ATTEND Internal Medicine Geriatric Medicine | DX: K74.60 Unspecified cirrhosis of liver (principal); K83.01 Primary sclerosing cholangitis; K76.6 Portal hypertension; R16.1 Splenomegaly, not elsewhere classified; G31.9 Degenerative disease of nervous system, unspecified; K43.9 Ventral hernia without obstruction or gangrene; R18.8 Other ascites | CPT/HCPCS: 76700 ==